=== PATIENT | female | born 1990 | race Caucasian/White ===

== ENCOUNTER 2016-07-27 19:31 | Inpatient (IN) | payer OTHER ==
[2016-07-27] MEDS ORDERED: TYLENOL PO ONE (19:59)
[2016-07-27 20:08] LABS: URINE SOURCE CLEAN CATCH
[2016-07-27 20:39] LABS: BILIRUBIN URINE NEGATIVE (NEGATIVE); BLOOD URINE 2+ (NEGATIVE); CLARITY VERY CLOUDY (CLEAR); COLOR YELLOW; GLUCOSE URINE NEGATIVE (NEGATIVE); LEUKOCYTES URINE 2+ (NEGATIVE); NITRITE URINE POSITIVE (NEGATIVE); PROTEIN URINE 1+(30 mg/dL) mg/dL (NEGATIVE); URINE MICROSCOPIC NEEDED? YES
[2016-07-27 21:03] LABS: URINE EPITHELIAL CELLS <10 /HPF (<10); URINE WBC 20-40 /HPF (<10); UROBILINOGEN URINE 3+(8 mg/dL)
[2016-07-27] MEDS ORDERED: NS 1,000 ML IV ONE ×2 (21:34→23:59)
[2016-07-27] MEDS ORDERED: ROCEPHIN 1 GM/NS 50 ML IV ONE (21:34)
--- NOTE | 2016-07-27 21:35 | PROVIDER DOCUMENTATION ---
HPI-Abdominal Pain/GI Problem - General Source: patient <Francy Greene - Last Filed: 07/27/16 23:43> - History of Present Illness-ABD Abdominal Pain Onset Location: reports: RUQ, RLQ, flank Quality of Pain: reports: aching Severity in ED: reports: mild Onset/Duration: reports: other (8 days) Timing: reports: still present Activities at Onset: reports: none Modifying Factors: improves with: nothing Associated Symptoms: reports: nausea, weakness, other (decreased fluid intake) Bruising or Bleeding Gums?: No Similar Symptoms Previously?: No Recently seen or treated by another doctor?: No <Emily Hargrove - Last Filed: 07/27/16 23:55> - General Chief Complaint: Abdominal Pain Stated Complaint: FEVER,RIGHT SIDE PAIN Time Seen by Provider: 07/27/16 20:42 Allergies/Adverse Reactions: Patient Allergies Allergy/AdvReac Type Severity Reaction Status Date / Time morphine AdvReac Severe HIVES Verified 07/27/16 21:58 Home Medications: Levetiracetam E.r. [Keppra Xr] 500 mg PO BID 05/12/13 - History of Present Illness-ABD Nature of Presenting Problems: 25 year old F presents to the ED with a cc of fever, RUQ pain, right flank pain , and RLQ pain with an onset of 8 days ago. Pt states that she has had decreased fluid intake, lethargy, and weakness. Pt states that she has also had nausea after eating small bits. Pt states that she has also lost 4 pounds in 2 weeks. (Emily Hargrove) Review of Systems - Adult - REVIEW OF SYSTEMS - ADULT Constitutional: reports: fever, fatique. denies: chills Eyes: reports: no symptoms reported Ears, Nose, Mouth & Throat: denies: ear pain, throat pain Cardiovascular: denies: chest pain, palpitations Respiratory: denies: cough, shortness of breath Gastrointestinal: reports: abdominal pain, nausea, other (decreased fluid intake ) Genitourinary: reports: no symptoms reported Musculoskeletal: reports: muscle weakness. denies: muscle aches Integumentary: denies: skin sores/ulcer, skin thickening Neurological: reports: no symptoms reported Psychiatric: reports: no symptoms reported Endocrine: reports: no symptoms reported Hematologic/Lymphatic: reports: no symptoms reported Allergic/Immunologic: reports: no symptoms reported All Other Systems: Reviewed and Negative <Emily Hargrove - Last Filed: 07/27/16 23:55> Past History - Adult - PAST MEDICAL HISTORY-ADULT Major Childhood Illnesses: reports: denies history Cardiovascular: reports: denies history Respiratory: reports: denies history Gastrointestinal: reports: denies history Genitourinary: reports: denies history Musculoskeletal: reports: denies history Neurological: reports: denies history Psychiatric: reports: denies history Endocrine/Immune: reports: denies history - IMMUNIZATION STATUS Childhood Immunizations: See Nurse Assessment Flu Vaccine: See Nurse Assessment - FAMILY HISTORY Family History: reviewed, not pertinent <Francy Greene - Last Filed: 07/27/16 23:43> Physical Exam-General - PHYSICAL EXAM-ADULT Initial Vital Signs Reviewed: Yes - CONSTITUTIONAL General Appearance: appears well, alert, no apparent distress, thin - HEAD, EARS, NOSE, MOUTH & THROAT HENMT: other (dry lips, tongue, and mucous membranes) - RESPIRATORY Respiratory: chest non-tender, lungs clear, normal breath sounds - CARDIOVASCULAR Cardiovascular: normal peripheral pulses, no edema, tachycardia - GASTROINTESTINAL (ABDOMEN) Abdominal Exam: normal bowel sounds, soft, tenderness, Gold's sign. negative : McBurney's point tenderness, obturator sign, prominent aortic pulsations, psoas, Rovsing's sign - MUSCULOSKELETAL Back Exam: CVA tenderness (right) Extremity: normal inspection - SKIN Integumentary: normal color, normal turgor, warm/dry - PSYCHIATRIC Psych/Mental Status: normal mood/affect, normal thought content, normal thought process, oriented x 3 <Emily Hargrove - Last Filed: 07/27/16 23:55> Progress <Francy Greene - Last Filed: 07/27/16 23:43> - XRAY 1 XRAY Study: Abdomen XRAY Interpretation: chest: NAD ABD: NSBGP : Dr. Mckenzie - CT/MRI 1 CT Study: Abdomen, Pelvis Impression: Abnormal (right pylonephritis. 5 cm left ovarian cyst. Likely physiological but recommended follow up) - CONSULTS/PCP/HOSPITALIST Notification #1 *Consult/PCP/Hospitalist*: Dr. Rao Time Discussed: 23:49 Consult Disposition: Admit <Delvin,Emily - Last Filed: 07/27/16 23:55> - PLAN OF CARE/RESULTS Progress/Plan/Lab Results: plan of care: imaging, labs, medications, fluids Orders Category Date Time Status Cardiac Monitoring DIRECTED Care 07/27/16 21:58 Active Saline Loc NOW Care 07/27/16 21:[address] ABD/PELVIS W/ IV CONT ONLY [CT] Stat Exams 07/27/16 21:34 Taken FLAT/UPRIGHT ABD/1 VIEW CHEST [RAD] Stat Exams 07/27/16 19:59 Taken AMYLASE [CHEM] Stat Lab 07/27/16 21:12 Completed BLOOD CULTURE [BLDCUL] Stat Lab 07/27/16 22:35 Results CBC WITH DIFF [HEME] Stat Lab 07/27/16 21:12 Completed COMPREHENSIVE METABOLIC PANEL [CHEM] Stat Lab 07/27/16 21:12 Completed LACTATE, PLASMA [CHEM] Stat Lab 07/27/16 22:35 Completed LIPASE [CHEM] Stat Lab 07/27/16 21:12 Completed TEST-URINE [PREG] Stat Lab 07/27/16 20:[address] [URINALYSIS] Stat Lab 07/27/16 20:00 Completed URINE MICROSCOPIC [URINALYSIS] Stat Lab 07/27/16 20:00 Completed 0.9% Sodium Chloride Inj [Ns] 1,000 ml Med 07/27/16 21:34 Discontinued IV 999 mls/hr Acetaminophen [Tylenol] Med 07/27/16 19:59 Discontinued 650 mg PO NOW ONE CefTRIAXONE 1 GM/NS [Rocephin 1 gm/Ns] 50 ml Med 07/27/16 21:34 Discontinued IV NOW Potassium Chloride E.r. [Klor-Con] Med 07/27/16 23:42 Discontinued 40 meq PO NOW ONE Laboratory Tests 07/27/16 07/27/16 07/27/16 20:00 20:00 21:12 WBC RBC Hgb Hct MCV MCH MCHC RDW Std Deviation Plt Count MPV Immature Gran % (Auto) Neut % (Auto) Lymph % (Auto) [place] % (Auto) Eos % (Auto) Baso % (Auto) Immature Gran # (Auto) Neut # Lymph # [place] # Eos # Baso # Segmented Neutrophils Band Neutrophils Lymphocytes Monocytes Metamyelocytes Hypochromia Anisocytosis Microcytosis Sodium 131 L Potassium 2.8 L Chloride 94 L Carbon Dioxide 27 Anion Gap 10 BUN 10 Creatinine 0.6 Estimated GFR/1.73 m2 > 60 BUN/Creatinine Ratio 17 Glucose 114 H Calculated Osmolality 263 Calcium 8.1 L Total Bilirubin 0.30 AST 14 ALT 13 Alkaline Phosphatase 143 H Total Protein 6.4 Albumin 2.7 L Globulin 4.0 Albumin/Globulin Ratio 1.0 Amylase 8 L Lipase 12 L Plasma Lactate Urine Source CLEAN CATCH Urine Color YELLOW Urine Clarity VERY CLOUDY A Urine pH 7.0 Ur Specific [place] 1.000 Urine Protein 1+(30 mg/dL) A Urine Ketones NEGATIVE Urine Blood 2+ A Urine Nitrite POSITIVE A Urine Bilirubin NEGATIVE Urine Urobilinogen 3+(8 mg/dL) Urine Microscopic RBC 10-20 A Urine WBC 2+ A Urine Microscopic WBC 20-40 A Ur Epithelial Cells <10 Urine Bacteria 2+ Urine Glucose NEGATIVE Urine Test NEGATIVE 07/27/16 07/27/16 21:12 22:35 WBC 29.22 H RBC 3.30 L Hgb 9.0 L Hct 27.7 L MCV 83.9 MCH 27.3 MCHC 32.5 L RDW Std Deviation 14.9 H Plt Count 252 MPV 10.5 H Immature Gran % (Auto) 0.7 H Neut % (Auto) 82.9 H Lymph % (Auto) 6.4 L [place] % (Auto) 9.5 H Eos % (Auto) 0.4 Baso % (Auto) 0.1 Immature Gran # (Auto) 0.19 H Neut # 24.22 H Lymph # 1.87 [place] # 2.79 H Eos # 0.12 Baso # 0.03 Segmented Neutrophils 64 Band Neutrophils 11 H Lymphocytes 14 L Monocytes 2 Metamyelocytes 9 Hypochromia 2+ Anisocytosis 2+ Microcytosis 2+ Sodium Potassium Chloride Carbon Dioxide Anion Gap BUN Creatinine Estimated GFR/1.73 m2 BUN/Creatinine Ratio Glucose Calculated Osmolality Calcium Total Bilirubin AST ALT Alkaline Phosphatase Total Protein Albumin Globulin Albumin/Globulin Ratio Amylase Lipase Plasma Lactate 1.1 Urine Source Urine Color Urine Clarity Urine pH Ur Specific [place] Urine Protein Urine Ketones Urine Blood Urine Nitrite Urine Bilirubin Urine Urobilinogen Urine Microscopic RBC Urine WBC Urine Microscopic WBC Ur Epithelial Cells Urine Bacteria Urine Glucose Urine Test Vital Signs - 24 hr 07/27/16 19:55 Temperature 101 F H Pulse Rate 84 Respiratory 18 Rate Blood Pressure 125/76 O2 Sat by Pulse 99 Oximetry Pt/Family given results. Pt will be admitted to the Hospitalist Group. PT/ Family in agreement with plan of care. (Emily Hargrove) Departure - Departure Time of Disposition Order: 23:43 Certified Medical Emergency: Emergent <Francy Greene - Last Filed: 07/27/16 23:43> - Departure Time of Disposition Order: 23:52 Certified Medical Emergency: Emergent <Emily Hargrove - Last Filed: 07/27/16 23:55> - Departure DIAGNOSIS: Pyelonephritis Disposition: ADMITTED INPATIENT 09 Condition: Stable Referrals: None,PCP [Primary Care Provider] - Attestation - Physician/ Mid-level Attestation Patient care was provided by Mid-level provider ([employer] CONSULTANT/PA):: Yes Mid-level provider:: Francy Greene Mid-level documentation review:: The Mid-level provider documentation, treatment plan and medical decision making was reviewed by the physician who agrees with all treatment and medical decision making by the MLP. <Francy Greene - Last Filed: 07/27/16 23:43> - Scribe Verification/Attestation Scribe:: Emily Hargrove Acting as Scribe for:: Francy Greene Scribe documention review:: This chart was documented by a scribe and accurately reflects the service the provider performed and the decisions made by the provider. <Emily Hargrove - Last Filed: 07/27/16 23:55> Physician Attestation - Physician Attestation I, the provider, attest to the following statement:: Francy Greene Physician documentation Attestation:: This documentation recorded by the scribe accurately reflects the service I personally performed and the decisions made by me. <Emily Hargrove - Last Filed: 07/27/16 23:55>
[2016-07-27 21:36] LABS: BASO% 0.1 % (0.0-0.8); EOS# 0.12 X1000 (0.0-0.7); EOS% 0.4 % (0.0-10.0); HEMATOCRIT 27.7 % (37.0-47.0); IMM GRAN# 0.19 X1000 (0.0-0.04); IMM GRAN% 0.7 % (0.0-0.5); LYMPH# 1.87 X1000 (1.2-3.4); LYMPH% 6.4 % (20.5-51.1); MANUAL DIFF NEEDED? YES; MCH 27.3 PG (27-31); MCHC 32.5 g/dL (33-37); MCV 83.9 FL (81-99); MONO# 2.79 X1000 (0.11-0.59); MONO% 9.5 % (1.7-9.3); MPV 10.5 FL (7.4-10.4); NEUT% 82.9 % (42.2-75.2); PLT 252 X1000 (130-400)
[2016-07-27 21:44] LABS: AGAP 10; ALBUMIN 2.7 g/dL (3.5-5.0); ALKALINE PHOSPHATASE 143 U/L (32-104); AMYLASE 8 U/L (20-200); BUN 10 mg/dL (8-22); CALCIUM 8.1 mg/dL (8.8-10.2); CHLORIDE 94 mmol/L (98-107); COSMO 263; GOT 14 U/L (10-30); GPT 13 U/L (10-36); LIPASE 12 U/L (13-60); POTASSIUM 2.8 mmol/L (3.5-5.1); SODIUM 131 mmol/L (136-145); TCO2 27 mmol/L (25-35); TOTAL PROTEIN 6.4 g/dL (6.3-8.3)
[2016-07-27 21:46] LABS: BANDS 11 % (0-1); LYMPHS 14 % (21-51); METAMYELOCYTES 9 %; MONO 2 % (1-9)
[2016-07-27 21:47] LABS: HYPOCHROM 2+
[2016-07-27] MEDS ORDERED: KLOR-CON PO ONE (23:42)
[2016-07-28] MEDS ORDERED: TYLENOL PO PRN (00:01)
[2016-07-28] MEDS ORDERED: KEPPRA ONE (01:19)
[2016-07-28 06:43] LABS: BASO% 0.2 % (0.0-0.8); EOS# 0.27 X1000 (0.0-0.7); EOS% 0.9 % (0.0-10.0); HEMATOCRIT 28.8 % (37.0-47.0); HEMOGLOBIN 9.4 g/dL (12.0-16.0); IMM GRAN# 0.13 X1000 (0.0-0.04); IMM GRAN% 0.4 % (0.0-0.5); LYMPH# 1.62 X1000 (1.2-3.4); LYMPH% 5.5 % (20.5-51.1); MANUAL DIFF NEEDED? YES; MCH 27.6 PG (27-31); MCHC 32.6 g/dL (33-37); MCV 84.5 FL (81-99); MONO# 2.81 X1000 (0.11-0.59); MONO% 9.5 % (1.7-9.3); MPV 10.9 FL (7.4-10.4); NEUT% 83.5 % (42.2-75.2); PLT 244 X1000 (130-400); RBC 3.41 XMIL (4.2-5.4)
[2016-07-28 06:57] LABS: AGAP 8; ALBUMIN 2.2 g/dL (3.5-5.0); ALKALINE PHOSPHATASE 170 U/L (32-104); BUN 8 mg/dL (8-22); CALCIUM 7.7 mg/dL (8.8-10.2); CHLORIDE 106 mmol/L (98-107); COSMO 279; GOT 13 U/L (10-30); GPT 11 U/L (10-36); POTASSIUM 2.9 mmol/L (3.5-5.1); SODIUM 140 mmol/L (136-145); TCO2 25 mmol/L (25-35); TOTAL PROTEIN 5.6 g/dL (6.3-8.3)
[2016-07-28 07:49] LABS: BANDS 5 % (0-1); EOS 1 % (1-10); LYMPHS 10 % (21-51); MONO 2 % (1-9)
--- NOTE | 2016-07-28 07:54 | Diag Imaging Result Document ---
PROCEDURE NAME: FLAT/UPRIGHT ABD/1 VIEW CHEST - 07/27/2016 ABDOMINAL SERIES: COMPARISON: No comparison exam. FINDINGS: There is a large amount of retained fecal debris in the colon suggesting constipation. Bowel gas pattern is, otherwise, nonspecific. There is no free air identified. Upright chest shows normal heart size. Lungs appear clear. No pleural effusion or pneumothorax seen. IMPRESSION: 1. Constipation. 2. No evidence of acute cardiopulmonary disease.
--- NOTE | 2016-07-28 07:59 | Diag Imaging Result Document ---
PROCEDURE NAME: CT ABD/PELVIS W/ IV CONT ONLY - 07/27/2016 CT ABDOMEN AND PELVIS WITH IV CONTRAST: The exam performed with intravenous contrast only per request of the referring provider. A dose-reduction protocol was used. COMPARISON: Compared with a without contrast renal stone search of 01/01/2016. FINDINGS: The visualized lung bases are clear. There are no substantial abnormalities of the liver, spleen, adrenal glands, or pancreas identified. There are no calcified gallstones or pericholecystic inflammation identified. There is substantially heterogeneous enhancement of the right kidney. There is a 1.5 cm low- density area at the anterior lower right kidney which may represent early abscess formation. There is no substantial hydronephrosis identified. The left kidney enhances homogeneously. There is a large amount of retained fecal debris in the colon consistent with constipation. There is no evidence of bowel obstruction. The appendix is not discretely visualized , but there is no pericecal inflammation identified. There is no free air. Images of the pelvis, otherwise, show a 5 cm left ovarian cyst. There is no substantial free fluid. IMPRESSION: 1. Substantially heterogeneous enhancement of the right kidney compatible with right pyelonephritis. Possible 1.5 cm developing abscess at the anterior lower right kidney. Unremarkable left kidney. 2. 5 cm left ovarian cyst. 3. Constipation. A [employer] physician provided preliminary results at 11:04 p.m. on 07/27/2016. [facility]
[2016-07-28] MEDS: TORADOL IV PRN ×2 (08:18→15:35)
[2016-07-28] MEDS ORDERED: KLOR-CON PO ONE (09:07)
[2016-07-28] MEDS: KEPPRA XR PO SCH ×2 (09:30→20:40)
[2016-07-28] MEDS: POTASSIUM CHLORIDE 20 MEQ/SWI 100 ML IV SCH ×2 (09:39→14:32)
[2016-07-28] MEDS ORDERED: NS 1,000 ML ONE (09:52)
--- NOTE | 2016-07-28 14:25 | HISTORY AND PHYSICAL ---
PRIMARY CARE PHYSICIAN: The patient has no primary care physician CHIEF COMPLAINT: Right flank pain. HISTORY OF PRESENT ILLNESS: This is a 25-year-old female who presented to the emergency room complaining of about 8 days of right flank pain. She describes this as a crampy aching type pain. It is 8/10 at its worst, 2/10 at its best. She has had some generalized nausea and weakness. She has had no appetite. She states she has worked very hard to increase her p.o. water intake during this time. She denied any fever or chills. On admission to the emergency room she had a temperature of 101 degrees with a white blood cell count of 29.22. CT of the abdomen and pelvis was compatible with right-sided pyelonephrosis with a possible 1.5 cm developing abscess at the anterior lower right kidney, a 2.5 cm left ovarian cyst and constipation. She was admitted for further evaluation and treatment. PAST MEDICAL HISTORY: Seizures with the last being 3 years ago. PAST SURGICAL HISTORY: . D and C. SOCIAL HISTORY: She smokes half a pack a day. Denies alcohol or illicit drug use. ALLERGIES: Morphine which causes hives. HOME MEDICATIONS: Keppra XR 500 b.i.d. REVIEW OF SYSTEMS: A 14 point review of systems is discussed with the patient with pertinent positives as stated in the HPI. She denies chest pain, palpitations, dizziness, syncope, vomiting, diarrhea, constipation, black or bloody vomitus, black or bloody stools, hematuria, dysuria, frequency, urgency. PHYSICAL EXAMINATION: GENERAL: This is a 25-year-old, female, who is sitting up in the bed with no distress. VITAL SIGNS: Blood pressure is 118/77 with a heart rate of 107, respirations are 15, temperature is 98.8 degrees oral with room air saturation of 100%. HEENT: Head is normocephalic, atraumatic. Pupils equal, round, react to light. EOMs are intact. Sclerae anicteric. Mucous membranes are moist. NECK: Supple. Trachea midline. CARDIOVASCULAR: Regular rate and rhythm. No rubs, murmurs, or gallops. S1, S2 appreciated. PULMONARY: Breath sounds are clear. No increased work of breathing noted. GASTROINTESTINAL: Abdomen is soft, nontender, nondistended with bowel sounds in all 4 quadrants. BACK: She has positive right CVAT. Negative left with no spine tenderness. MUSCULOSKELETAL: Good range of motion of joints. EXTREMITIES: No clubbing, cyanosis, or edema. Pulses are palpable x4. Calves are nontender. SKIN: Warm and dry. DIAGNOSTIC DATA: WBC is 29.22 with a hemoglobin of 9, hematocrit 27.7, platelets of 252,000. Sodium 131, potassium 2.8, chloride 94, CO2 27, with a glucose of 114. CT of the abdomen and pelvis is consistent with right pyelonephritis with a possible renal abscess. ASSESSMENT: 1. Leukocytosis. 2. Right pyelonephrosis with a possible 1.5 cm developing abscess at the anterior right kidney. 3. Hypokalemia. 4. History of seizure disorder. 5. Deep vein thrombosis prophylaxis. 6. Gastrointestinal prophylaxis. PLAN: She is admitted to the hospital. Blood cultures and urine cultures were obtained. She was started on Rocephin IV. We will continue this. Cultures are still pending. We will continue with IV hydration. We will continue with IV nausea control as well as IV pain control. We will give her little Keppra as at home. We will supplement potassium and recheck labs daily. For DVT prophylaxis, we will use SCDs and GI prophylaxis, Protonix. Dictated by SARAH Longoria for Ke Rao MD
--- NOTE | 2016-07-28 17:37 | CONSULTATION ---
DATE OF CONSULTATION: 07/28/2016 CONCLUSION: Patient is admitted the hospital with a right-sided pyelonephritis and possible early abscess formation. RECOMMENDATIONS: I have switched the patient from Rocephin to cefepime. DISCUSSION: The patient tells me approximately 2 weeks ago she started having right flank pain. She did not have fever or chills. She did not have dysuria. She did not notice much of a change in the color of her urine either. The patient was admitted to the hospital here at [place]. Her CBC shows a white count of 29,720, hemoglobin 9.4, and platelet count 244,000. Creatinine is 0.5. GFR is greater than 60. Alkaline phosphatase is 170. Blood and urine cultures are pending. CT scan shows right pyelonephritis with possible abscess formation. PAST MEDICAL HISTORY/REVIEW OF SYSTEMS: Eyes and ears: She denies difficulty hearing or seeing. Neck: No stiffness. Respiratory: No dyspnea or cough. Cardiovascular: No chest pain or palpitations. GI: No nausea, vomiting, or diarrhea. : See above discussion. Neurologic: No motor sensory deficit. Endocrine: The patient does not have diabetes or thyroid disease. Hematologic: No anemia or bleeding tendency. The remainder of the patient's review of systems was completed and was negative. TRAY CHECKER HISTORY: She is a 2 para 2 AB 0. She delivered both of her children by . She has had a dilatation and curettage and a tubal ligation. Her last menstrual period was 2 weeks ago. PREVIOUS HOSPITALIZATIONS AND OPERATIONS: Patient has had a cyst removed from her right ear. She has had 2 C-sections and a tubal ligation and dilatation and curettage. MEDICAL DISEASES: Positive for seizure disorder. Negative for diabetes. INFECTIOUS DISEASE HISTORY: Positive for pneumonia and UTI in the past. FAMILY HISTORY: Positive for cancer, hypertension and stroke. SOCIAL HISTORY: The patient lives in [place]. She is single. She lives with her mother and 2 children. She has a dog as a pet. She smoke cigarettes. She does not drink alcoholic beverages or abuse drugs. ALLERGIES: She has an allergy to morphine. HOME MEDICATION: Keppra. PHYSICAL EXAMINATION: Vital Signs: Temperature is 98.8 degrees, pulse 107, respirations 15, blood pressure 118/77. Generally: This is a very thin young female patient. She is in no acute distress. Her weight is 90 pounds. Head, eyes, ears, nose, and throat: She can hear my spoken words and see near objects. No drainage noted from the nose or ears. Neck: No meningismus. Thorax: No increased AP diameter of the chest. Lungs: Clear to auscultation. Cardiovascular: Heart rate is regular and rapid. Peripheral pulses are palpable. There is no edema. Abdomen: Soft and nontender. There is no right flank tenderness. Neurologic: Patient is alert. She can move her extremities. There is no tremor. Her sensation is intact to touch. Her memory is intact. Regarding her medical history. Integument: I did not see any rashes. Thank you for the consult.
[2016-07-28] MEDS ORDERED: GENTAMICIN IV PER PHARMACY MISC SCH (18:15)
[2016-07-28] MEDS: MAXIPIME 1 GM/NS 50 ML IV SCH (18:44)
[2016-07-28] MEDS: NS IV SCH (20:40)
[2016-07-28] MEDS: GENTAMICIN IV SCH (20:40)
[2016-07-28] MEDS: ZOFRAN IV PRN (21:58)
[2016-07-28] MEDS: NORCO-5 PO PRN (21:58)
[2016-07-28] MEDS ORDERED: ROCEPHIN 1 GM/NS 50 ML IV SCH (22:00)
[2016-07-29] MEDS: MAXIPIME 1 GM/NS 50 ML IV SCH ×2 (06:01→18:01)
[2016-07-29 08:25] LABS: HEMATOCRIT 24.7 % (37.0-47.0); MCHC 32.4 g/dL (33-37); MCV 83.4 FL (81-99); MPV 10.6 FL (7.4-10.4); RBC 2.96 XMIL (4.2-5.4)
[2016-07-29 08:34] LABS: AGAP 10; ALKALINE PHOSPHATASE 222 U/L (32-104); BUN 13 mg/dL (8-22); CALCIUM 7.8 mg/dL (8.8-10.2); CHLORIDE 105 mmol/L (98-107); COSMO 271; GOT 31 U/L (10-30); GPT 19 U/L (10-36); POTASSIUM 3.8 mmol/L (3.5-5.1); SODIUM 135 mmol/L (136-145); TCO2 21 mmol/L (25-35); TOTAL PROTEIN 5.6 g/dL (6.3-8.3)
[2016-07-29] MEDS: KEPPRA XR PO SCH ×2 (09:34→21:27)
[2016-07-29] MEDS: ZOFRAN IV PRN (18:08)
[2016-07-29] MEDS: NORCO-5 PO PRN (18:08)
[2016-07-29] MEDS: NS IV SCH (19:54)
[2016-07-29] MEDS: GENTAMICIN IV SCH (19:54)
--- NOTE | 2016-07-29 21:44 | PROGRESS NOTE ---
DATE: 07/29/2016 SUBJECTIVE: The patient states she is feeling a little bit better, having less pain. Denies any nausea or vomiting. Denies any dysuria or frequency. Denies fevers or chills. OBJECTIVE: Vital Signs: Temperature 98.7, pulse 101, blood pressure 107/66. General: Patient is well-developed, well-nourished. Currently in no real respiratory distress. She is awake, alert. Neck: Supple. Cardiovascular: Regular rate and rhythm. Chest: Relatively clear. Abdomen: Soft, nondistended. She has no flank pain or tenderness. Extremities: Moves all extremities. Neurologic: No changes. LABS: Gram-negative rods growing in her urine. Sensitivities still pending. ASSESSMENT: 1. Acute pyelonephritis. We will continue to follow. 2. Leukocytosis. WBCs continue to improve, was 29.7, currently 12.2. 3. Anemia stable. Hemoglobin and hematocrit 8 and 24. 4. Hypokalemia resolved. Potassium 3.2. 5. Hypocalcemia. Calcium 7.8. 6. Moderate protein calorie malnutrition with albumin level of 2.0. PLAN: We will continue patient on IV antibiotics. She certainly appears to be improved. Her symptoms are improving. Her white count is improving. We will continue to follow her potassium, replace her calcium. Further orders as needed.
[2016-07-30] MEDS: NORCO-5 PO PRN ×2 (01:15→11:38)
[2016-07-30] MEDS: MAXIPIME 1 GM/NS 50 ML IV SCH (05:11)
[2016-07-30] MEDS: ZOFRAN IV PRN (07:52)
[2016-07-30] MEDS: KEPPRA XR PO SCH (08:01)
[2016-07-30 08:14] VITALS: BP 107/69
--- NOTE | 2016-07-30 14:40 | PROGRESS NOTE ---
DATE: 07/30/2016 This 25-year-old female was admitted the hospital with a severe pyelonephritis due to E. coli. The organism in vitro is susceptible to all antibiotics tested. There was a question whether an abscess is forming in the kidney at this time. She did well in the hospital on IV antibiotics and she has been discharged today on Cipro 500 mg p.o. every 12 hours for 3 weeks. I have requested that she see me in my office in 3 weeks. At that time we will repeat either her CAT scan or a renal ultrasound to determine how the kidney looks and if there is an abscess that requires drainage. We did not find any definite predisposing factor to the patient developing a urinary tract infection, although she has had urinary tract infections in the past.
--- NOTE | 2016-07-30 21:23 | DISCHARGE SUMMARY ---
ADMISSION DATE: 07/28/2016 DISCHARGE DATE: 07/30/2016 PRIMARY CARE PHYSICIAN: None. INFECTIOUS DISEASE: Johnathan Gonzales M.D. who was also consulted during this hospitalization. ADMISSION DIAGNOSES: 1. Leukocytosis. 2. Right pyelonephritis with possible 1.5 cm developing abscess at the anterior right kidney. 3. Hypokalemia. 4. History of seizure disorder. DISCHARGE DIAGNOSES: 1. Leukocytosis resolved. 2. Right pyelonephritis with possible 1.5 cm developing abscess at the anterior right kidney. 3. Hypokalemia resolved. 4. History of seizure disorder. SUMMARY OF FINDINGS: This is a 25-year-old female who presented to the emergency room complaining of 8 days of right flank pain. She described it as a cramping, aching type of pain. She had some generalized nausea, weakness and decreased appetite. She states she has worked very hard to increase her p.o. water intake during this time. On admission to the emergency room, she had a temperature of 101 degrees with a white blood cell count of 29.22. CT of the abdomen and pelvis was compatible with right-sided pyelonephritis with a possible 1.5 cm developing abscess at the anterior lower right kidney. She was admitted, placed on IV Rocephin initially, cultures were pending. We consulted Infectious Disease, Dr. Gonzales, who changed her Rocephin to cefepime until cultures had returned. She was also noted to have hypokalemia which was supplemented and has now resolved. Her urine culture is back today with E. coli sensitive to all medications on the culture list. I discussed this case again with Dr. Gonzales who agreed that she could be switched to Cipro 500 mg 1 p.o. b.i.d., take for 3 weeks and then follow up with him in 3 weeks. So she will have a prescription for her Cipro. She will also continue her home medication of Keppra 500 mg p.o. b.i.d. Again she will follow up with Dr. Gonzales in 3 weeks after completion of her p.o. antibiotics. All discharge instructions have been reviewed with the patient and she verbalized understanding. TOTAL TIME SPENT ON DISCHARGE: 32 minutes. Dictated by SARAH Arevalo for Nic Steinberg MD
== END 2016-07-30 12:52 | disposition home or self-care (01) | DRG 690 ==
LOC: P.ED 19:31 → P.MEDSURG 07-28 00:22
PROVIDERS: ATTEND Family Medicine
DX: N10 Acute pyelonephritis (principal); E44.0 Moderate protein-calorie malnutrition; Z68.1 Body mass index [BMI] 19.9 or less, adult; E83.51 Hypocalcemia; B96.20 Unspecified Escherichia coli [E. coli] as the cause of diseases classified elsewhere; E87.6 Hypokalemia; N15.1 Renal and perinephric abscess; F17.210 Nicotine dependence, cigarettes, uncomplicated; G40.909 Epilepsy, unspecified, not intractable, without status epilepticus; Z79.899 Other long term (current) drug therapy; D64.9 Anemia, unspecified; Z80.9 Family history of malignant neoplasm, unspecified; Z82.49 Family history of ischemic heart disease and other diseases of the circulatory system; Z82.3 Family history of stroke
CPT/HCPCS: 74022; 74177; 80053; 80170; 81001; 81025; 82150; 83605; 83690; 85025; 85027; 87040; 87077; 87088; 87186; 96361; 96365; J0692; J0696; J1580; J1885; J2405; J3480; J7030; Q9967